=== PATIENT | female | born 1985 | race Caucasian/White ===

== ENCOUNTER 2018-08-24 18:26 | Emergency (ER) | payer MEDICAID ==
[~2018-08-24] VITALS: Ht 167.6 cm; Wt 73.6 kg
[2018-08-24 18:40] VITALS: Ht 167.6 cm; Wt 73.6 kg
[2018-08-24] MEDS ORDERED: TRAZODONE HCL100 MG PO (18:44)
[2018-08-24] MEDS ORDERED: NORCO 10-325 TA1 TAB PO (18:44)
[2018-08-24] MEDS ORDERED: LEXAPRO20 MG PO (18:45)
[2018-08-24] MEDS ORDERED: ULTRAM50 MG PO (21:54)
[2018-08-24 22:33] VITALS: BP 136/78
== END 2018-08-24 22:33 | disposition home or self-care (01) ==
LOC: D.ER 18:26
DX: R60.0 Localized edema (principal); V43.52XA Car driver injured in collision with other type car in traffic accident, initial encounter; Y93.89 Activity, other specified; Y92.410 Unspecified street and highway as the place of occurrence of the external cause; F17.200 Nicotine dependence, unspecified, uncomplicated